=== PATIENT | female | born 1995 | race Two or more races ===

== ENCOUNTER 2025-04-23 09:31 | Outpatient (CLI) | payer OTHER | END 2025-04-23 09:38 | disposition home or self-care (01) | LOC: PRENATAL 09:31 | PROVIDERS: ATTEND Obstetrics & Gynecology Maternal & Fetal Medicine | DX: O36.80X0 Pregnancy with inconclusive fetal viability, not applicable or unspecified (principal); Z36.82 Encounter for antenatal screening for nuchal translucency; O99.281 Endocrine, nutritional and metabolic diseases complicating pregnancy, first trimester; Z3A.12 12 weeks gestation of pregnancy ==

== ENCOUNTER → 2025-06-18 09:15 | Outpatient (CLI) | payer OTHER | END | disposition home or self-care (01) | LOC: PRENATAL 09:15 | PROVIDERS: ATTEND Obstetrics & Gynecology Maternal & Fetal Medicine | DX: O44.02 Complete placenta previa NOS or without hemorrhage, second trimester (principal); O99.282 Endocrine, nutritional and metabolic diseases complicating pregnancy, second trimester; Z3A.21 21 weeks gestation of pregnancy ==